=== PATIENT | male | born 1970 | race Hispanic/Latino ===

== ENCOUNTER 2018-09-14 10:05 | Outpatient (CLI) | payer OTHER ==
--- NOTE | 2018-09-14 12:08 | RAD ---
TWO VIEW LEFT HIP SERIES: INDICATION: Disability exam. Left hip pain. 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 No a cute osseous abnormality. There is incidentally noted vascular calcification. IMPRESSION: Postoperative left hip without acute hardware complication. POS: [facility]
== END 2018-09-14 10:06 | disposition home or self-care (01) ==
LOC: BICRAD 10:05
PROVIDERS: ATTEND Internal Medicine
DX: Z02.71 Encounter for disability determination (principal); Z98.890 Other specified postprocedural states